=== PATIENT | male | born 1945 | race Caucasian/White ===

== ENCOUNTER 2022-05-23 08:13 | Day surgery (SDC) | payer MEDICARE, OTHER ==
[~2022-05-23] VITALS: Ht 177.8 cm; Wt 74.0 kg
[~2022-05-23 08:13] MED LIST: ABIRATERONE AC250 MG PO; CYCL10 PO; DIAZ5 PO; ETOD400 PO; IBUP800 PO; LORA10ER PO; MECL25 PO; Norco 5-325 Ta1 EACH PO; OXYB5 PO; POTA10T PO; POTCHL20ER PO; PROM25 PO; Pyridium100 MG PO; TAMS.4ER PO; ZOCOR20 MG PO
--- NOTE | 2022-05-23 08:58 | NUR ---
Ambulatory in Day Surgery. Surgical site prepped with 2% Chlorhexidine cloth wipe. History, Chart, Medications and Allergies reviewed before start of procedure.Patient confirms NPO status and agrees with scheduled surgery. Pre-Op teaching done. Pt verbalizes understanding. Patient States Post-Procedure ride home has been arranged. Patient reports completing Chlorhexadine shower X2 prior to admission to hospital.Lungs clear T/O to Auscultation.
--- NOTE | 2022-05-23 12:32 | NUR ---
Discharge instructions reviewed with patient. Patient verbalizes understanding. Copy given to patient to take home. Dressing to procedure site clean, dry, intact with no visible drainage, swelling, erythema or bruising noted.
--- NOTE | 2022-05-23 12:53 | NUR ---
Discharged via wheelchair to private car for ride home.
== END 2022-05-23 12:54 | disposition home or self-care (01) ==
LOC: ORSCMMR 08:13 → ORD 10:00 → ORSCMMR 10:00
PROVIDERS: Surgery
PROC: 0YU54JZ Supplement Right Inguinal Region with Synthetic Substitute, Percutaneous Endoscopic Approach (ICD-10-PCS; principal; 2022-05-23 10:00)
PROC: 8E0W4CZ Robotic Assisted Procedure of Trunk Region, Percutaneous Endoscopic Approach (ICD-10-PCS; principal; 2022-05-23 10:00)
DX: K40.90 Unilateral inguinal hernia, without obstruction or gangrene, not specified as recurrent (principal); E78.00 Pure hypercholesterolemia, unspecified; Z79.899 Other long term (current) drug therapy
CPT/HCPCS: 49650; S2900; A9270; C1781; J0690; J1100; J1885; J2250; J2405; J2704; J2795; J3010; J7120